=== PATIENT | female | born 1945 | race Caucasian/White ===

== ENCOUNTER 2018-04-10 10:46 | Emergency (ER) | payer OTHER ==
--- NOTE | 2018-04-10 12:10 | EDPHY ---
General Time Seen by Provider: 04/10/18 11:16 Narrative: CLINICAL IMPRESSION: Possible left 1st proximal closed metacarpal fracture ASSESSMENT/PLAN: 72-year-old female presents to the emergency department with over 24 hr of left wrist pain after ground level fall. She has notable swelling to the radial and ulnar aspect of the wrist, no reproducible scaphoid tenderness, pain is primarily over the 1st MCP joint. X-ray show possible chip fracture at this location. No obvious dislocation or significant deformity. She is visiting our area from [place]. I placed her in a thumb spica splint, provided copies of her x-rays, and encouraged repeat x-ray and follow-up with Orthopedics in her home state. Patient is comfortable this plan. Warning signs return to emergency department sooner outlined in person. DIFFERENTIAL DX: Differential includes but not limited to acute fracture, strain/sprain, joint dislocation, soft tissue contusion ED PROCEDURES: Procedure: Splint placement. A Velcro thumb spica splint was applied to left wrist by laundry tech, supervised by myself. After application of the splint I returned and re-examined the patient. The splint was adequately immobilizing the joint and distal to the splint the patient's circulation and sensation was intact. ED COURSE: X-rays reviewed by myself, possible chip fracture of the 1st MCP joint of the left wrist CHIEF COMPLAINT: Left wrist pain HPI: 72-year-old female visiting our area from [place] presents to the emergency department with acute left wrist pain after ground level fall with foosh injury yesterday. Patient reports persistent swelling and pain to the wrist. She is right-hand dominant. No reported open wound, loss of sensation to the hand or fingers, forearm or elbow pain. She has been icing and elevating. No other injuries and she did not hit her head. PAST MEDICAL HISTORY: None reported Pertinent Past Surgical History: No prior Ortho surgery Social History: Right-hand dominant, visiting from [place] REVIEW OF SYSTEMS: All other systems negative Constitutional: No fever, no chills Musculoskeletal: No deformity, + joint pain Skin: No rashes, color change or open wounds. Neurological: No sensory loss or weakness. PHYSICAL EXAM: General Appearance: Alert, oriented, appropriate for age, cooperative, NAD, well hydrated, non-toxic appearing, VSS, no hypoxia. Neurological: Alert and oriented x 3, normal sensation and strength of extremities Skin: Warm, dry, no rashes, no nodules on palpation. Musculoskeletal: Swelling noted to radial and ulnar aspect of the left wrist. Reproducible pain to palpation along the left 1st MCP joint. No scaphoid tenderness. Flexion and extension intact although limited due to pain. No obvious deformity. Distal neurovascular exam intact. MEDICAL DECISION MAKING: Patient was seen independently. Secondary supervising physician at time of evaluation was Dr. Cm . Diagnosis: Possible left 1st MCP joint fracture. New, requires workup Summary: See assessment and plan for summary of ED visit Independent visualization of images, tracing, or specimens yes. Patient Progress: Improved. - Diagnostics Imaging Results: Imaging Impressions Wrist X-Ray 04/10/18 11:06 Impression: 1. Moderate to marked degenerative changes at the first carpometacarpal joint with calcific fragments along the medial and lateral margins that could represent chronic changes from degenerative joint disease with chondrocalcinosis versus acute chip or avulsion fractures. 2. Mild joint space narrowing at the trapezium navicular joint. - History Smoking Status: Former smoker - Objective Vital Signs: Initial Vital Signs Temperature (C) 36.7 C 04/10/18 11:02 Heart Rate 71 04/10/18 11:02 Respiratory Rate 16 04/10/18 11:02 Blood Pressure 127/71 H 04/10/18 11:02 O2 Sat (%) 95 04/10/18 11:02 O2 Delivery Mode Room Air Allergies/Adverse Reactions: ROBERTO Inhibitors Allergy (Verified 04/10/18 11:01) Departure - Departure Disposition: Home, Routine, Self-Care Clinical Impression: Wrist fracture, left Qualifiers: Encounter type: initial encounter Fracture type: closed Qualified Code(s): S62.102A - Fracture of unspecified carpal bone, left wrist, initial encounter for closed fracture Condition: Fair Instructions: Wrist Fracture in Adults (ED) Additional Instructions: DISCHARGE INSTRUCTIONS FROM YOUR DOCTOR Thank you for visiting our emergency department today. Please keep in mind that discharge from the emergency department does not mean that there is nothing wrong - it simply means that we have not identified an emergency condition that requires further evaluation or treatment in the hospital. You should always plan to follow up with primary care for re-evaluation of your condition in the next 2-3 days. If you have been referred to a specialist, please call as soon as possible (today or tomorrow) to schedule your follow up appointment at the appropriate time. WE PROVIDED A COPY OF X-RAYS ON A DISC TODAY. A VELCRO THUMB SPICA SPLINT WAS GIVEN. PLEASE FOLLOW-UP WITH ORTHOPEDICS IN [place] WHEN YOU RETURNS HOME. KEEP SPLINT ON UNTIL YOU SEE ORTHOPEDICS. REST AND ELEVATE THE AFFECTED EXTREMITY MUCH POSSIBLE. ICE THE AFFECTED AREAS 20 MIN ON, 20 MIN OFF FOR THE NEXT SEVERAL DAYS. PLEASE USE TYLENOL OR IBUPROFEN OVER THE COUNTER IN APPROPRIATE DOSES OUTLINED ON YOUR DISCHARGE PAPERS. TAKE IBUPROFEN WITH FOOD AND A LARGE GLASS OF WATER. DO NOT TAKE IBUPROFEN IF YOU ARE ON A BLOOD THINNING MEDICATION SUCH COUMADIN, XARELTO, WARFARIN, LOVENOX OR PLAVIX. RETURN TO EMERGENCY DEPARTMENT [facility]ON[facility] FOR WORSENING PAIN, LOSS OF SENSATION TO HAND OR FINGERS, FEVERS, OR ANY OTHER CONCERN. People present with illnesses and injuries in different ways, and it is always possible that we have missed something. You may always return for re-evaluation if symptoms worsen or if they are not improving or if you develop new/different symptoms. Again, thank you for choosing our emergency department. We hope that you feel better. Referrals: NONE *PRIMARY CARE P,. [Primary Care Provider] - As per Instructions
[2018-04-10 12:24] VITALS: BP 120/74
== END 2018-04-10 12:23 | disposition home or self-care (01) ==
DX: S62.102A Fracture of unspecified carpal bone, left wrist, initial encounter for closed fracture (principal); W19.XXXA Unspecified fall, initial encounter; Y92.9 Unspecified place or not applicable; Y93.9 Activity, unspecified; Y99.9 Unspecified external cause status